=== PATIENT | female | born 1975 | race African-American/Black ===

== ENCOUNTER → 2016-12-02 | Day surgery (SDC) | payer BC ==
[~2016-12-02] MED LIST: ACYCLOVIR400 MG PO; BACTRIM DS TABL1 TA1 PO; DIFLUCAN PO; FLEXERIL10 MG PO; GABAPENTIN300 M2 PO; METROGEL-VAGINA70 GM VG; ORUDIS75 M1 PO; PYRIDIUM PO; VICODIN 5/500 T1 TAB PO; VOLTAREN75 MG PO
== END | disposition home or self-care (01) ==
LOC: CCSC 08:47
DX: M50.121 Cervical disc disorder at C4-C5 level with radiculopathy (principal); M50.122 Cervical disc disorder at C5-C6 level with radiculopathy; M43.12 Spondylolisthesis, cervical region; M25.78 Osteophyte, vertebrae; Z79.899 Other long term (current) drug therapy
CPT/HCPCS: J1040; J2250

== ENCOUNTER → 2016-12-16 | Day surgery (SDC) | payer BC ==
--- NOTE | ~2016-12-16 | OR ---
Unit #: [id number] #: [id number] Patient: TEGAN RIDER [id number] [address] [place], [place] [address] [id number] MR#: [id number] NAME: TEGAN RIDER ROOM: Date of Procedure: 12/02/2016 Admission Date: 12/16/2016 Surgeon: Ralph Alvarez M.D. : 1975 Attending Physician: Ralph Alvarez M.D. Primary Care Physician: Primary Care Physician No OPERATIVE REPORT PREOPERATIVE DIAGNOSES Neck pain, cervical radiculopathy, degenerative cervical disk disease. POSTOPERATIVE DIAGNOSES Neck pain, cervical radiculopathy, degenerative cervical disk disease. PROCEDURE PERFORMED Cervical epidural steroid injection with intravenous sedation and fluoroscopic guidance for needle localization. INDICATIONS FOR PROCEDURE The patient is a 41-year-old female with neck and worsened left upper extremity pain. She had some problems over the last 2 years. It is worsened significantly over the last 6 months. It is not settle with conservative measures. Workup demonstrated degenerative disk disease at C4-C5 and C5-C6; disk osteophyte complex, it is worse at C4-C5; and spondylolisthesis at C4-C5. Based on history, pathology, symptomatology, and response to treatment, plan is for trial of epidural steroids. Risks and benefits of all which have been reviewed. DESCRIPTION OF PROCEDURE The patient was placed in the seated position. Standard monitors were applied. 2 mg of Versed were given for sedation and anxiolysis, which were adequate. Vital signs remained stable. Sterile prep and drape then of the cervical area was performed. The skin then at the C4-C5 level was localized with 1% lidocaine. An 18-gauge [employer] needle was then advanced via hanging drop technique and fluoroscopic guidance in toward the epidural space. After confirming proper positioning with fluoroscopy and radiographic contrast, 80 mg of Depo-Medrol and 2 mL of 0.25% bupivacaine were deposited. The patient tolerated the procedure otherwise well and was discharged to the recovery room in stable condition. Dictated by... Dragan Edmondson/jesika TD: 12/02/2016 15:21 JOB #: [id number] Unit #: [id number] #: [id number] Patient: JORGE RIDERAMRITAndrzej OPERATIVE REPORT Page 1 of 1 X Ralph Alvarez MD X PROCEDURE OPERATIVE NOTE
--- NOTE | ~2016-12-16 | OR ---
Unit #: [id number] #: [id number] Patient: TEGAN RIDER [id number] [address] [place], [place] [address] [id number] O MR#: [id number] NAME: TEGAN RIDER ROOM: Date of Procedure: 12/16/2016 Admission Date: 12/16/2016 Surgeon: Ralph Alvarez M.D. : 1975 Attending Physician: Rlaph Alvarez M.D. Referring Physician: Ralph Alvarez M.D. Primary Care Physician: Primary Care Physician No OPERATIVE REPORT PREOPERATIVE DIAGNOSES Neck pain, cervical radiculopathy, cervical disk disease. POSTOPERATIVE DIAGNOSES Neck pain, cervical radiculopathy, cervical disk disease. PROCEDURE PERFORMED Cervical epidural steroid injection with intravenous sedation and fluoroscopic guidance for needle localization. INDICATIONS FOR PROCEDURE The patient is a 41-year-old female with neck and intermittent left upper extremity pain, which has been worsening, begin problem following an injury in 2014. She had waxing and waning course for several years and got significantly worse this past June, does not settle with conservative treatments, so plan is for trial of epidural steroids. Initial injection 2 weeks ago resulted in resolution of left upper extremity pain, improvement in the left patient intake coordinator strength and [id number] improvement of her neck pain. Based on a good partial initial improvement, we are going to proceed with a second injection today. DESCRIPTION OF PROCEDURE The patient was placed in a seated position. Standard monitors were applied. 2 mg of Versed were given for sedation and anxiolysis, which were adequate. Vital signs remained stable. Sterile prep and drape then of the cervical area was performed. The skin then at the C5-C6 level was localized with 1% lidocaine. An 18-gauge [employer] needle was then advanced via hanging drop technique and fluoroscopic guidance in toward the epidural space. The patient did not complain of pain or paresthesia during needle advancement. After confirming proper positioning with fluoroscopy and radiographic contrast, 80 mg of Depo-Medrol and 2 mL of 0.25% bupivacaine were deposited. The patient tolerated the procedure otherwise well and was discharged to the recovery room in stable condition. Dictated by... Dragan Edmondson/jesika TD: 12/16/2016 13:29 Unit #: [id number] #: [id number] Patient: TEGAN RIDER JOB #: [id number] OPERATIVE REPORT Page 1 of 1 X Ralph Alvarez MD X PROCEDURE OPERATIVE NOTE
== END | disposition home or self-care (01) ==
LOC: CCSC 09:15
DX: M50.121 Cervical disc disorder at C4-C5 level with radiculopathy (principal); M43.12 Spondylolisthesis, cervical region
CPT/HCPCS: J1040; J2250

== ENCOUNTER → 2016-12-30 | Day surgery (SDC) | payer BC ==
--- NOTE | ~2016-12-30 | OR ---
Unit #: [id number] #: [id number] Patient: TEGAN RIDER [id number] [address] [place], [place] [address] [id number] O MR#: [id number] NAME: TEGAN RIDER ROOM: Date of Procedure: 12/30/2016 Admission Date: 12/30/2016 Surgeon: Ralph Alvarez M.D. : 1975 Attending Physician: Ralph Alvarez M.D. Primary Care Physician: Primary Care Physician No OPERATIVE REPORT PREOPERATIVE DIAGNOSES Neck pain, cervical radiculopathy, degenerative cervical disk disease. POSTOPERATIVE DIAGNOSES Neck pain, cervical radiculopathy, degenerative cervical disk disease. PROCEDURE PERFORMED Cervical epidural steroid injection with intravenous sedation and fluoroscopic guidance for needle localization. INDICATIONS FOR PROCEDURE The patient is a 41-year-old female with neck and intermittent left upper extremity pain started in 2014 after injury and re-flared in 06/2016, would not settle with conservative measures. Workup demonstrated degenerative disk disease and spondylolisthesis at C4-C5 and C5-C6 levels as well as disk osteophyte complex. Decision was made to give her trial of epidural steroids. Two were done to this point over the last month. It given additive significant improvement in her neck pain and resolved her upper extremity pain. Based on her good response, we are going to proceed with a final injection at this point and see the patient back in [facility]. DESCRIPTION OF PROCEDURE The patient was placed in a seated position. Standard monitors were applied. Sterile prep and drape of the cervical area was performed. The skin at the C5-C6 level was localized with 1% lidocaine. An 18-gauge [employer] Healthcare[employer]ad needle was then advanced via hanging drop technique and fluoroscopic guidance in toward the epidural space. After confirming proper positioning with fluoroscopy and radiographic contrast, 80 mg of Depo-Medrol and 2 mL of 0.25% bupivacaine were deposited. The patient tolerated the procedure otherwise well and was discharged to the recovery room in stable condition. Dictated by... Dragan Edmondson/jesika TD: 12/30/2016 12:38 JOB #: [id number] Unit #: [id number] #: [id number] Patient: TEGAN RIDER OPERATIVE REPORT Page 1 of 1 X Ralph Alvarez MD X PROCEDURE OPERATIVE NOTE
== END | disposition home or self-care (01) ==
LOC: CCSC 09:12
DX: M50.10 Cervical disc disorder with radiculopathy, unspecified cervical region (principal); M43.12 Spondylolisthesis, cervical region; Z79.899 Other long term (current) drug therapy
CPT/HCPCS: J1040; J2250

== ENCOUNTER 2017-02-02 11:00 | Emergency (ER) | payer BC ==
[~2017-02-02] VITALS: Ht 162.6 cm; Wt 79.4 kg
--- NOTE | ~2017-02-02 | CT2 ---
[facility]. [facility] A Service of [facility] RADIOLOGY TEXT RESULTS PATIENT: TEGAN RIDER LOCATION: [facility] : [birth year] UNIT #: [id number] AGE: [address]: Ezekiel Booth MD SEX: F ORDER DR: [id number] [facility] [address] [place], [place] [address] [id number] MR#: [id number] Acc #: [id number] NAME: TEGAN RIDER : 1975 SEX: F STUDY DATE/TIME: 02/02/2017 14:57 UNIT: [facility] ROOM: STUDY DESCRIPTION: CT Abd and Pelv W Cont Ordering Physician: Maximiliano Alfredo M.D. MEDICAL IMAGING REPORT This report is preliminary unless electronic signature is present EXAM CT of the abdomen and pelvis with contrast HISTORY Left-sided abdomen pain and pelvic pain since this morning. TECHNIQUE Patient was given 100 cc of Isovue-370 and axial 5 mm images were obtained through the abdomen and pelvis. Sagittal and coronal reconstructions were generated. This CT exam was performed with one or more of the following radiation dose reduction techniques: automatic exposure control, adjustment of mA and/or kV according to patient size, and iterative reconstruction. COMPARISON STUDIES 11/13/2013. FINDINGS Lung bases are clear. There is an early enhancing hepatic lesion measuring 2.6 cm in diameter in the central right hepatic lobe. It was not visible on the prior [address] scans from 2013 and 2010. The liver shows mild diffuse fatty change. The gallbladder, spleen, pancreas, adrenal glands and kidneys are normal in appearance. The aorta is normal in size and there is no adenopathy. The bowel appears normal. The left ovary contains a thin-walled cyst measuring 3.7 cm in diameter. The uterus and adnexal regions are normal. The bones are unremarkable. There may actually be a second hepatic lesion measuring a centimeter in diameter, slightly anterior to the larger lesion. IMPRESSION 1. Patient has a 3.7 cm left ovarian cyst, which is likely the source of STS. [facility] A Service [facility] RADIOLOGY TEXT RESULTS PATIENT: TEGAN RIDER LOCATION: [facility] #: [id number] : [birth year] UNIT #: [id number] AGE: [address]: Ezekiel Booth MD SEX: F ORDER DR: the pain. This should be a physiologic cyst in a patient of this age. 2. There is an enhancing 2.6 cm lesion in the right lobe of the liver and perhaps another 8 mm enhancing lesion also in the right lobe of the liver. 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 I cannot, however, completely exclude the possibility of hepatocellular carcinoma or other etiology. There is mild diffuse fatty change throughout the liver. Follow-up with multiphase dedicated liver protocol CT scan as an outpatient is recommended. 3. Otherwise, study is normal. Dictated by... Kiel Fong M.D. THIS IS AN ELECTRONICALLY VERIFIED REPORT Kiel Fong M.D. at 02/03/2017 12:43 PM FEL/pcl TD: 02/02/2017 23:36 JOB #: [id number] MEDICAL IMAGING REPORT Page 1 of 1 COPY
[2017-02-02 12:49] LABS: BASOPHIL% 0.3 % (0-2.5); EOSINOPHIL# 0.1 X10e3 (0-0.7); EOSINOPHIL% 1.3 % (0.0-7.0); HEMATOCRIT 34.5 % (35.0-45.0); HEMOGLOBIN 11.2 gm/dL (12.0-16.0); LYMPHOCYTE# 1.9 X10e3 (1.0-3.5); LYMPHOCYTE% 18.1 % (17.0-45.0); MEAN CORPUSCULAR HEMOGLOBIN 28.3 PG (28-34); MEAN CORPUSCULAR HGB CONC 32.5 g/dL (30-36); MEAN PLATELET VOLUME 8.2 FL (6.5-11.5); MONOCYTE# 0.6 X10e3 (0-1.0); MONOCYTE% 5.3 % (3.0-12.0); PLATELET COUNT 357 X10e3 (140-420); RED BLOOD COUNT 3.97 X10e (3.90-5.30); RED CELL DISTRIBUTION WIDTH 13.9 % (11.0-15.5); WHITE BLOOD COUNT 10.7 X10e3 (4.0-10.5)
[2017-02-02 12:50] LABS: DIFF IND NO
[2017-02-02 13:12] LABS: ALBUMIN SERUM 4.2 g/dL (3.5-5.0); ALKALINE PHOSPHATASE 70 U/L (32-92); ALT (SGPT) 27 U/L (10-40); AST (SGOT) 23 U/L (10-42); BILIRUBIN, DIRECT <0.1 mg/dL (0.0-0.2); BILIRUBIN,INDIRECT 0.4 mg/dL (0.0-0.9); BILIRUBIN,TOTAL 0.5 mg/dL (0.2-2.0); BLOOD UREA NITROGEN 11 mg/dL (9-23); BUN/CREATININE RATIO 18.33; CALCIUM SERUM 9.3 mg/dL (8.4-10.2); CARBON DIOXIDE 26 mmol/L (22-31); CHLORIDE 103 mmol/L (100-111); CREATININE SERUM 0.6 mg/dL (0.6-1.4); GLOM FILT RATE Estimated 130.3 mL/min (>60); GLUCOSE FASTING 144 mg/dL (70-110); LIPASE 19 U/L (22-51); POTASSIUM 4.1 mmol/L (3.5-5.1); PROTEIN TOTAL SERUM 7.6 g/dL (6.0-8.3); SODIUM 136 mmol/L (135-145)
[2017-02-02 13:25] LABS: URINE SOURCE CLEAN CATCH
[2017-02-02 13:58] LABS: URINE APPEARANCE CLEAR; URINE BILIRUBIN NEG (NEG); URINE BLOOD NEG (NEG); URINE COLOR YELLOW; URINE GLUCOSE NEG (NEG); URINE KETONE NEG (NEG); URINE LEUKOCYTE ESTERASE NEG (NEG); URINE NITRATE NEG (NEG); URINE PH 5.5 (5-8); URINE PROTEIN NEG (NEG); URINE SPECIFIC GRAVITY 1.023 (1.003-1.035); URINE UROBILINOGEN 0.2 MG/DL (NEG)
[2017-02-02 14:00] LABS: CULTURE INDICATED? NO
== END 2017-02-02 16:14 | disposition home or self-care (01) ==
LOC: CED 11:00
DX: N83.202 Unspecified ovarian cyst, left side (principal); I10 Essential (primary) hypertension; D64.9 Anemia, unspecified; Z98.890 Other specified postprocedural states; Z90.710 Acquired absence of both cervix and uterus
CPT/HCPCS: 36415; 74177; 80048; 80076; 81003; 83690; 85025; 96374; 96375; 99284; J2270; J2405; Q9967